=== PATIENT | female | born 1990 | race Caucasian/White ===

== ENCOUNTER 2019-06-19 08:50 | Outpatient (CLI) | payer BC ==
--- NOTE | 2019-06-19 10:03 | RAD ---
CERVICAL SPINE FOUR VIEWS: 06/19/2019 HISTORY: Neck pain. COMPARISON: None. FINDINGS: There is mild disk space narrowing with posterior and anterior osteophyte formation at C6-C7. There i s multilevel mid cervical spine facet hypertrophy, left greater than right. Open-mouth odontoid view demonstrates a normal appearing dens and C1-C2 articulation. The dens appears unremarkable on the Fuc hs view. IMPRESSION: Cervical spine degenerative change, as above. POS: [facility]
--- NOTE | 2019-06-19 10:07 | RAD ---
SI JOINTS 3 VIEWS: Date: 06/19/19 HISTORY: Low back pain. Right-sided sciatica. FINDINGS: SI joints are both patent and symmetric. No abnormal sclerosis identified. Visualized pelvis and sacr um appear unremarkable. IMPRESSION: Unremarkable exam. POS: [facility]
--- NOTE | 2019-06-19 10:10 | RAD ---
LUMBAR SPINE TWO VIEWS: HISTORY: Low back pain. Right side sciatica. FINDINGS: Slight scoliotic curvature of the upper lumbar spine to the left. Lumbar vertebrae maintain normal he ight and alignment on the lateral view. The disk spaces are preserved. No significant degenerative sp urring. No spondylolisthesis or spondylolysis. IMPRESSION: Slight curvature of the lumbar spine. Lumbar spine otherwise unremarkable. POS: [facility]
== END 2019-06-19 08:51 | disposition home or self-care (01) ==
LOC: BICRAD 08:50
PROVIDERS: ATTEND Internal Medicine
DX: M54.41 Lumbago with sciatica, right side (principal); M54.2 Cervicalgia; M47.812 Spondylosis without myelopathy or radiculopathy, cervical region
CPT/HCPCS: 72040; 72100; 72202

== ENCOUNTER 2020-06-12 14:25 | Outpatient (CLI) | payer BC ==
--- NOTE | 2020-06-12 16:10 | MRI ---
MR CERVICAL SPINE WITHOUT CONTRAST: 06/12/20 INDICATION: History of disc degenerative disease with neck pain over the last year that has worsened. COMPARISON: Cervical spine radiograph dated 06/18/19. FINDINGS: There is some straightening of the normal cervical lordosis. Bone marrow signal intensity appears wit hin normal limits. The visualized aspects of the posterior fossa appear within normal limits. Prevert ebral and paravertebral soft tissues appear within normal limits. Craniocervical junction appears wit hin normal limits. At C2-C3, there is mild facet joint degenerative change. There is no appreciable central canal or nichole ral foraminal narrowing. At C3-C4, there is mild facet joint degenerative change but no appreciable central canal or neural fo raminal narrowing. At C4-C5, there is a broad based bulge with mild facet joint degenerative change without appreciable central canal or neural foraminal narrowing. The broad based bulge does mildly efface the ventral sub arachnoid space without cord contact. At C5-C6, there is a central disc protrusion causing mild effacement of the spinal cord without cord signal abnormality. At C6-C7, there is a left paracentral disc protrusion causing mild left anterolateral effacement of t he spinal cord. There is also moderate to severe left neural foraminal narrowing. At C7-T1, there is no appreciable central canal or neural foraminal narrowing. IMPRESSION: 1. Mild cervical spondylosis. 2. Central disc protrusion at C5-C6 inducing mild ventral effacement of the spinal cord without cord signal abnormality. 3. Left paracentral disc protrusion at C6-C7 causing mild left anterolateral effacement of the s ines cord with moderate to severe left C6-C7 neural foraminal narrowing. POS: [facility]
== END 2020-06-12 14:26 | disposition home or self-care (01) ==
LOC: BICMRI 14:25
PROVIDERS: ATTEND Internal Medicine
DX: M50.322 Other cervical disc degeneration at C5-C6 level (principal); M50.223 Other cervical disc displacement at C6-C7 level; M47.812 Spondylosis without myelopathy or radiculopathy, cervical region; M48.02 Spinal stenosis, cervical region
CPT/HCPCS: 72141

== ENCOUNTER 2023-09-21 10:05 | Outpatient (CLI) | payer BC | END 2023-09-21 10:06 | disposition home or self-care (01) | LOC: BICMAMMO 10:05 | PROVIDERS: ATTEND Internal Medicine | DX: N64.4 Mastodynia (principal); N63.14 Unspecified lump in the right breast, lower inner quadrant | CPT/HCPCS: 77066; G0279 ==